=== PATIENT | male | born 1965 | race Caucasian/White ===

== ENCOUNTER 2022-01-29 08:01 | Day surgery (SDC) | payer OTHER ==
[~2022-01-29] VITALS: Ht 175.3 cm; Wt 85.7 kg
[2022-01-29] MEDS ORDERED: fentaNYL citrate 0.05 MG/ML VIAL ONE (09:27)
[2022-01-29] MEDS ORDERED: LIDOCAINE 2% 100 MG/5 ML UJET TP ONE (09:27)
[2022-01-29] MEDS ORDERED: fentaNYL citrate 0.05 MG/ML VIAL IVP ONE (11:30)
== END 2022-01-29 12:00 | disposition home or self-care (01) ==
LOC: MDS 08:01 → MMU 08:01 → MDS 12:00
PROVIDERS: ATTEND Internal Medicine Gastroenterology
DX: K62.5 Hemorrhage of anus and rectum (principal); D12.2 Benign neoplasm of ascending colon; K57.30 Diverticulosis of large intestine without perforation or abscess without bleeding; I10 Essential (primary) hypertension; Z20.822 Contact with and (suspected) exposure to COVID-19
CPT/HCPCS: 45385; 87426; J3010